=== PATIENT | male | born 1980 | race Caucasian/White ===

== ENCOUNTER 2018-07-04 23:41 | Emergency (ER) | payer SELFPAY ==
[~2018-07-04] VITALS: Ht 180.3 cm; Wt 98.0 kg
[2018-07-04 23:41] VITALS: BP_SYST 148
[2018-07-05] MEDS ORDERED: LORazepam 2 MG/ML VIAL IVP ONE
[2018-07-05] MEDS: LORazepam 2 MG/ML VIAL (FOR ER USE) IVP ONE (00:16)
[2018-07-05 00:19] LABS: BASOPHILS # (AUTO) 0.1 K/uL (0.0-0.2); BASOPHILS % (AUTO) 0.8 % (0.0-2.0); EOSINOPHILS # (AUTO) 0.3 K/uL (0.0-0.4); EOSINOPHILS % (AUTO) 3.9 % (0.0-4.0); HEMATOCRIT 46.3 % (36-54); HEMOGLOBIN 15.8 g/dL (14.0-18.0); LYMPHOCYTES # (AUTO) 2.1 K/uL (1.0-5.5); MEAN CORPUSCULAR HEMOGLOBIN 32 pg (27-31); MEAN CORPUSCULAR HGB CONC 34 % (32-36); MEAN CORPUSCULAR VOLUME 93 fL (79.0-98.0); MONOCYTES # (AUTO) 0.5 K/uL (0.0-1.0); MONOCYTES % (AUTO) 6.8 % (1.7-9.3); NEUTROPHILS # (AUTO) 4.3 K/uL (1.8-7.7); NEUTROPHILS % (AUTO) 59.5 % (40.0-70.0); PLATELET COUNT (AUTO) 239 K/uL (130-430); RED BLOOD CELL COUNT(AUTO) 4.99 MIL/uL (4.2-6.2); WHITE BLOOD COUNT (AUTO) 7.3 K/uL (4.8-10.8)
[2018-07-05 00:29] LABS: CALCIUM 9.2 mg/dL (8.4-11.0); CREATININE 0.93 mg/dL (0.55-1.30); POTASSIUM 3.4 mmol/L (3.5-5.1)
[2018-07-05 00:34] LABS: ALBUMIN 4.2 g/dL (3.4-4.8); TOTAL BILIRUBIN 0.8 mg/dL (0.0-1.0)
[2018-07-05 00:57] LABS: BARBITURATE, URINE NEGATIVE (NEG <=200); BENZODIAZEPINE, URINE NEGATIVE (NEG <=150); CANNABINOID, URINE NEGATIVE (NEG <=50); COCAINE, URINE NEGATIVE (NEG <=150); METHAMPHETAMINES SCREEN,URINE NEGATIVE (NEG <=500); OPIATE, URINE NEGATIVE (NEG <=100); PHENCYCLIDINE SCREEN,URINE NEGATIVE (NEG <=25); UR TRICYCLIC ANTIDEPRESSANTS NEGATIVE (NEG <=300); URINE AMPHETAMINE NEGATIVE (NEG <=500); URINE METHADONE NEGATIVE (NEG <=200); URINE OXYCODONE SCREEN NEGATIVE (NEG <=100); URINE PROPOXYPHENE SCREEN NEGATIVE (NEG <=300)
[2018-07-05 01:45] VITALS: BP_SYST 151
== END 2018-07-05 01:45 | disposition home or self-care (01) ==
LOC: SED 23:41
DX: R00.2 Palpitations (principal); R73.9 Hyperglycemia, unspecified; F17.200 Nicotine dependence, unspecified, uncomplicated; Z71.6 Tobacco abuse counseling
CPT/HCPCS: 36415; 71045; 80053; 80307; 82962; 83880; 84484; 85025; 85610; 85730; 96374; 99284; J2060

== ENCOUNTER 2023-10-08 03:26 | Emergency (ER) | payer MEDICAID ==
[~2023-10-08] VITALS: Ht 182.9 cm; Wt 95.3 kg
[2023-10-08 03:58] VITALS: BP_SYST 163; PULSE 91; RESP 18; TEMP 96.8; O2SAT 93
[2023-10-08] MEDS ORDERED: ACET325T53 PO (05:16)
[2023-10-08 05:32] VITALS: BP_SYST 160; PULSE 92; RESP 18; TEMP 97.2; O2SAT 98
== END 2023-10-08 05:32 | disposition home or self-care (01) ==
LOC: SED 03:26
DX: S00.411A Abrasion of right ear, initial encounter (principal); Z79.899 Other long term (current) drug therapy; W22.8XXA Striking against or struck by other objects, initial encounter; Y93.89 Activity, other specified; Y92.89 Other specified places as the place of occurrence of the external cause; Y99.8 Other external cause status
CPT/HCPCS: 70450-TC; 99284